=== PATIENT | male | born 1990 | race Caucasian/White ===

== ENCOUNTER 2019-04-05 17:41 | Emergency (ER) | payer OTHER ==
[~2019-04-05] VITALS: Ht 180.3 cm; Wt 104.3 kg
[2019-04-05 17:47] VITALS: Ht 180.3 cm; Wt 104.3 kg
[2019-04-05 21:22] VITALS: BP 131/79
== END 2019-04-05 21:22 | disposition home or self-care (01) ==
LOC: ED 17:41
DX: F41.9 Anxiety disorder, unspecified (principal); F32.9 Major depressive disorder, single episode, unspecified; R07.89 Other chest pain; R06.02 Shortness of breath; Z88.0 Allergy status to penicillin
CPT/HCPCS: J2060; Q0092